=== PATIENT | female | born 2000 | race Hispanic/Latino ===

== ENCOUNTER 2018-12-11 14:49 | Emergency (ER) | payer OTHER ==
[~2018-12-11] VITALS: Ht 162.6 cm; Wt 64.5 kg
[2018-12-11] MEDS ORDERED: NEXP1IMP SC (14:59)
[2018-12-11] MEDS ORDERED: DIFL150T PO ×2 (16:23→16:24)
[2018-12-11 16:36] VITALS: BP 132/70
[2018-12-11 16:39] LABS: CHLAMYDIA DNA AMPLIFICATION NEGATIVE (NEGATIVE); GC DNA AMPLIFICATION NEGATIVE (NEGATIVE)
[2018-12-11 17:37] LABS: CHLAMYDIA DNA AMPLIFICATION NEGATIVE (NEGATIVE); GC DNA AMPLIFICATION NEGATIVE (NEGATIVE)
[2018-12-11 18:14] LABS: URINE PREG TEST NEGATIVE (NEGATIVE)
== END 2018-12-11 16:37 | disposition home or self-care (01) ==
LOC: M ED 14:49
DX: B37.3 Candidiasis of vulva and vagina (principal); Z79.3 Long term (current) use of hormonal contraceptives

== ENCOUNTER 2020-08-11 15:13 | Emergency (ER) | payer OTHER ==
[~2020-08-11] VITALS: Ht 162.6 cm; Wt 73.3 kg
[~2020-08-11 15:13] MED LIST: DIFL150T PO; NEXP1IMP SC
[2020-08-11] MEDS ORDERED: PYRI1TAB5 PO (16:21)
[2020-08-11] MEDS ORDERED: BACT800T5 PO (16:21)
[2020-08-11 16:32] VITALS: BP 117/77
== END 2020-08-11 16:34 | disposition home or self-care (01) ==
LOC: M ED 15:13
DX: N30.00 Acute cystitis without hematuria (principal); Z88.0 Allergy status to penicillin; Z79.3 Long term (current) use of hormonal contraceptives; Z79.899 Other long term (current) drug therapy

== ENCOUNTER 2021-05-18 19:11 | Emergency (ER) | payer OTHER ==
[~2021-05-18] VITALS: Ht 162.6 cm; Wt 70.7 kg
[~2021-05-18 19:11] MED LIST changes: +BACT800T5 PO; +PYRI1TAB5 PO
[2021-05-18 21:24] VITALS: BP 112/56
[2021-05-18 21:29] LABS: CHLAMYDIA DNA AMPLIFICATION NEGATIVE (NEGATIVE); GC DNA AMPLIFICATION NEGATIVE (NEGATIVE)
== END 2021-05-18 21:26 | disposition home or self-care (01) ==
LOC: M ED 19:11
DX: Z32.02 Encounter for pregnancy test, result negative (principal); Z88.0 Allergy status to penicillin

== ENCOUNTER 2023-05-13 17:30 | Emergency (ER) | payer OTHER ==
[~2023-05-13] VITALS: Ht 162.6 cm; Wt 70.8 kg
[~2023-05-13 17:30] MED LIST changes: +ETON68IM SC; -NEXP1IMP SC
[2023-05-13 17:32] VITALS: BP 126/66; TEMP 97.8; O2SAT 99
== END 2023-05-13 18:27 | disposition left against medical advice (07) ==
LOC: M ED 17:30
DX: Z53.21 Procedure and treatment not carried out due to patient leaving prior to being seen by health care provider (principal)

== ENCOUNTER 2024-02-19 10:58 | Emergency (ER) | payer OTHER ==
[~2024-02-19] VITALS: Ht 162.6 cm; Wt 72.5 kg
[2024-02-19] MEDS: LIDOCAINE 1% MDV 20ML VIAL SC ONE (11:45)
[2024-02-19] MEDS: NEOSPORIN OINT 0.9 GM PKT TOP ONE (11:45)
[2024-02-19 12:29] VITALS: BP 129/65; TEMP 99.1; O2SAT 99
== END 2024-02-19 12:57 | disposition home or self-care (01) ==
LOC: M ED 11:42
DX: S61.412A Laceration without foreign body of left hand, initial encounter (principal); Y92.019 Unspecified place in single-family (private) house as the place of occurrence of the external cause; Y93.9 Activity, unspecified; Y99.9 Unspecified external cause status; Z88.0 Allergy status to penicillin